=== PATIENT | male | born 1950 | race Caucasian/White ===

== ENCOUNTER 2024-09-27 12:05 | Observation (INO) | payer OTHER ==
[2024-09-26 11:03] LABS: Absolute Basophils 0.1 K/uL (0-0.5); Absolute Eosinophils 0.2 K/uL (0-0.5); Absolute Lymphocytes (CBC) 1.8 K/uL (0.7-4.9); Absolute Monocytes 0.8 K/uL (0.1-1.3); Absolute Neutrophil 4.9 K/uL (1.8-8.0); Basophils % 0.8 % (0-1.3); Eosinophils % 3.1 % (0-4.4); Hematocrit 44.4 % (39.6-49.0); Hemoglobin 14.8 g/dL (13.6-17.9); Lymphocytes % 22.7 % (15.3-44.8); MCH 28.7 pg (27.0-35.0); MCHC 33.4 g/dL (32.0-36.0); MCV 85.9 fL (80-100); MPV 8.8 fL (7.6-11.3); Monocytes % 10.3 % (3.3-12.3); Neutrophils % 63.1 % (41.7-73.7); Nucleated Red Blood Cells % 0.1 % (0-0); Platelets 213 thou/uL (152-406); RBC Red Blood Cell Count 5.17 M/uL (4.33-5.43); Red Cell Distribution Width 14.4 % (12.1-15.2)
[2024-09-26 11:07] LABS: Anion Gap 9.4 mEq/L (5.0-15.0); Potassium 4.4 mEq/L (3.5-5.1)
[2024-09-26 11:11] LABS: PT Prothrombin Time 11.2 SECONDS (9.4-12.5); PTT, Activated Partial Thromb 31.5 SECONDS (24.3-36.9)
--- NOTE | 2024-09-26 11:28 | RAD REPORT ---
Procedure: Chest Pa And Lat (2 Views) HISTORY: Preop. Hypertension COMPARISON: none FINDINGS: There is scarring are present within the right lung base. The lungs appear clear of acute infiltrate. No significant pleural effusion noted. The heart is normal size. Mild elevation right hemidiaphragm
[2024-09-27] MEDS ORDERED: NA CHLORIDE 0.9% 500 ML ONE (12:37)
[2024-09-27] MEDS ORDERED: HEPARIN 10,000 UNIT/10 ML VIAL IV ONE (13:58)
[2024-09-27] MEDS ORDERED: NITROGLYCERIN/D5W 50 MG/250 ML BTL IV ONE (13:58)
[2024-09-27] MEDS ORDERED: HEPA 1000U/500MLS 0 UNIT/0 ML BAG IV ONE (13:58)
[2024-09-27] MEDS ORDERED: VERAPAMIL HCL 10 MG/4 ML VIAL IV ONE (13:58)
[2024-09-27] MEDS ORDERED: LIDOCAINE 1% 20 ML MDV ONE (13:58)
[2024-09-27] MEDS ORDERED: ATROPINE SULF 1 MG/10 ML SYR IV ONE (13:59)
[2024-09-27] MEDS ORDERED: MIDAZOLAM HCL 2 MG/2 ML INJ ONE (13:59)
[2024-09-27] MEDS ORDERED: FENTANYL CITR 100 MCG/2 ML ONE (14:00)
[2024-09-27] MEDS ORDERED: HEPARIN 5000 UNIT/ML 1 ML VIAL ONE (14:00)
[2024-09-27] MEDS ORDERED: ASPIRIN 325 MG TAB ONE (16:33)
[2024-09-27] MEDS ORDERED: TICAGRELOR 90 MG TABLET PO ONE ×2 (16:33)
[2024-09-27] MEDS ORDERED: ASPIRIN 81 MG CHEWABLE TABLET ONE (16:34)
[2024-09-27] MEDS ORDERED: MORPHINE 2 MG/ML SYR IV PRN (17:21)
[2024-09-27] MEDS ORDERED: ONDANSETRON 4 MG/2 ML VIAL IV PRN (17:21)
[2024-09-27] MEDS ORDERED: ACETAMINOPHEN 500 MG TAB PO PRN (17:21)
--- NOTE | 2024-09-27 17:26 | P.HP ---
Patient History Allergies morphine Allergy (Verified 09/26/24 10:22) hallucinate Physical Examination - Vital Signs Blood Pressure: 140/65 Pulse: 70 Respirations: 16 Assessment & Plan - Advance Directives Does patient have a Living Will: Yes Does patient have a Durable POA for Healthcare: Yes
--- OUTSIDE RECORDS SUMMARY | 2024-09-27 17:32 | XMS REPORT | Continuity of Care Document ---
Author Name Unknown Address [address] [facility] [address] Fernando[address] [place] [address] [facility] thconnect Address [address] [facility] [address] [place] [address] Care Team Providers Care Bridge Saw Operator Name Role Phone Kenny ROBERSON, Isabela Romano Primary Care Physician Darío Montgomery MD Attending Clinician [phone] DARÍO MONTGOMERY Attending Clinician Unavail able Payers Payer Name Policy Type Policy Number Effective Date Expirati on Date Source MEDICARE PART A AND B Medicare [id number] 2024 00:00:00 [employer] SENIOR SUPPLEMENT Supp [id number] 2020 00:00:00 Problems Condition Name Condition Details Condition Category Status Onset Date Resolution Date Last Treatment Date Treating Clinician Comments Source Jailene Dent a Disease Active 04-01 00:00: 00 Taras Ghosh Hemiplegia , unspecifie d affecting left nondominan t side (CMS/HCC) Hemiplegia , unspecifie d affecting left nondominan t side (CMS/HCC) Disease Active 02-15 00:00: 00 Taras Ghosh History of colonic polyps History of colonic polyps Disease Active 02-15 00:00: 00 Taras Ghosh History of rhabdomyol ysis due to statin History of rhabdomyol ysis due to statin Disease Active 4-16 00:00: 00 Taras Dorado [facility] Memory loss Memory loss Disease Active 4-16 00:00: 00 Taras Dorado Epic Heart valve disorder Heart valve disorder Disease Active 1-02 00:00: 00 Taras Dorado Epic History of repair of inguinal hernia History of repair of inguinal hernia Disease Active 2022-11 0 00:00: 00 Taras Dorado Epic Slipping, tripping and stumbling without falling, unspecifie d, sequela Slipping, tripping and stumbling without falling, unspecifie d, sequela Disease Active 2022-11 0 00:00: 00 Taras Hdezann Epic Strain of other specified muscles, fascia and tendons at thigh level, right thigh, sequela Strain of other specified muscles, fascia and tendons at thigh level, right thigh, sequela Disease Active 2022-11 00:00: 00 Taras Dorado Epic Mixed anxiety and depressive disorder Mixed anxiety and depressive disorder Disease Active 2022-11 0- 00:00: 00 Taras Dorado Epic Stress and adjustment reaction Stress and adjustment reaction Disease Active 2022-11 0- 00:00: 00 Taras Dorado Epic Skin lesion Skin lesion Disease Active 9 00:00: 00 Taras Dorado Epic Anxiety Anxiety Disease Active 05-15 00:00: 00 Taras Dorado Epic Murmur Murmur Disease Active 05-15 00:00: 00 Taras Dorado Epic Polyarthri tis Polyarthri tis Disease Active 05-15 00:00: 00 Taras Dorado Epic Gastroesop hageal reflux disease Gastroesop hageal reflux disease Disease Active 03-10 00:00: 00 Taras Dorado Epic Hyperlipid emia Hyperlipid emia Disease Active 03-10 00:00: 00 Taras Dorado Epic Polyneurop athy Polyneurop athy Disease Active 03-10 00:00: 00 Taras Dorado Epic Calculus of kidney and ureter Calculus of kidney and ureter Disease Resolve d 2- 00:00: 00 2024-04-01 00:00:00 2024-04-01 14:49:57 [facility] [place] [facility] Calculus of gallbladde r without cholecysti tis without obstructio n Calculus of gallbladde r without cholecysti tis without obstructio n Disease Resolve d 0 2-02 00:00: 00 2024-04-01 00:00:00 2024-04-01 14:49:57 [facility] [place] [facility] Diverticul osis of colon Diverticul osis of colon Disease Resolve d 0 2-02 00:00: 00 2024-04-01 00:00:00 2024-04-01 14:49:57 [facility] [place] [facility] Vitamin B12 deficiency Vitamin B12 deficiency Disease Resolve d 2- 00:00: 00 2024-04-01 00:00:00 2024-04-01 14:49:57 [facility] Vitamin D deficiency Vitamin D deficiency Disease Resolve d 2-02 00:00: 00 2024-04-01 00:00:00 2024-04-01 14:49:57 [facility] Anemia Anemia Disease Resolve d 1-23 00:00: 00 2024-04-01 00:00:00 2024-04-01 14:49:57 [facility] [place] [facility] Fatigue Fatigue Disease Resolve d 1-19 00:00: 00 2024-04-01 00:00:00 2024-04-01 14:49:57 [facility] Right lower quadrant pain Right lower quadrant pain Disease Resolve d 0 1-19 00:00: 00 2024-04-01 00:00:00 2024-04-01 14:49:57 [facility] [place] [facility] Allergic rhinitis due to pollen Allergic rhinitis due to pollen Disease Resolve d 0 - 00:00: 00 2024-04-01 00:00:00 2024-04-01 14:49:57 [facility] [place] Dizziness Dizziness Disease Resolve d 9- 00:00: 00 2024-04-01 00:00:00 2024-04-01 14:49:57 [facility] [place] [facility] Fracture of pelvis (CMS/HCC) Fracture of pelvis (CMS/HCC) Disease Resolve d 7-14 00:00: 00 2024-04-01 00:00:00 2024-04-01 14:49:57 Taras velez [facility] Allergies, Adverse Reactions, Alerts Allergy Name Allergy Type Status Severity Reaction(s) Onset Date Inactive Date Treating Clinician Comments Source Morphine Propensi ty to adverse reaction s Active 04-01 00:00: 00 Taras [facility] MORPHINE DRUG INGREDI Active 04-01 00:00: 00 MHEOUT NO KNOWN ALLERGIE S SYSTEMIC Active Taras [facility] Social History Social Habit Start Date Stop Date Quantity Comments Source History of tobacco use Passive smoker [facility] Gender identity Benedicto maximusrosie [facility] Sexual orientation [facility] Alcoholic beverage intake 2024-05-24 00:00:00 2024-05-24 00:00:00 Ex-drinker (finding) [facility] History of Social function 2024-05-24 00:00:00 2024-05-24 00:00:00 [facility] Tobacco use and exposure 2024-04-01 00:00:00 2024-04-01 00:00:00 Smokeless tobacco non-user [facility] Smoking Status Start Date Stop Date Source Occasional tobacco smoker 2024-04-01 00:00:00 [facility] Medications Ordered Medication Name Filled Medication Name Start Date Stop Date Current Medication? Ordering Clinician Indication Dosage Frequency Signature (SIG) Comments Components Source ergocalcife rol (Vitamin D2) 1.25 MG (05446 UT) capsule ergocalcife rol (Vitamin D2) 1.25 MG (70467 UT) capsule 05-24 16:04: 48 05-24 00:00 :00 No 1{capsu le} Take 1 capsule by mouth 1 time each week. Taras Dorado [facility] fluticasone (Flonase) 50 MCG/ACT nasal spray fluticasone (Flonase) 50 MCG/ACT nasal spray 05-24 16:04: 45 Yes 1{spray } QD Administer 1 spray into each nostril 1 time each day. Taars Dorado [facility] omeprazole (PriLOSEC) [address] capsule omeprazole (PriLOSEC) [address] capsule 03-23 00:00: 00 Yes 40mg Take 40 mg by mouth in the morning. Take before meals. Taras Dorado [facility] simvastatin (Zocor) 40 MG tablet simvastatin (Zocor) 40 MG tablet 02-22 00:00: 00 05-24 00:00 :00 No 40mg Take 40 mg by mouth at bedtime. Taras Dorado [facility] escitalopra m (Lexapro) 20 MG tablet escitalopra m (Lexapro) 20 MG tablet 11-03 00:00: 00 Yes 20mg QD Take 20 mg by mouth 1 time each day. Taras Dorado [facility] losartan (Cozaar) 50 MG tablet losartan (Cozaar) 50 MG tablet 11-03 00:00: 00 Yes 50mg QD Take 50 mg by mouth 1 time each day. Taras Dorado [facility] atorvastati n (Lipitor) 40 MG tablet atorvastati n (Lipitor) 40 MG tablet 11-03 00:00: 00 Yes 40mg QD Take 40 mg by mouth 1 time each day. Taras Dorado [facility] famotidine (Pepcid) 20 MG tablet famotidine (Pepcid) 20 MG tablet 2022-11 00:00: 00 Yes 20mg Q.5D Take 20 mg by mouth in the morning and 20 mg in the evening. Taras Dorado [facility] Vital Signs Vital Name Observation Time Observation Value Comments S dilipcitlaly Systolic blood pressure 2024-05-24 16:07:00 134 mm[Hg] [facility] Diastolic blood pressure 2024-05-24 16:07:00 58 mm[Hg] [facility] Heart rate 2024-05-24 16:07:00 68 /[facility] Body temperature 2024-05-24 16:07:00 36.39 Di [facility] Respiratory rate 2024-05-24 16:07:00 16 /min [facility] Body height 2024-05-24 16:07:00 174 cm [facility] Body weight 2024-05-24 16:07:00 91.173 kg [facility] BMI 2024-05-24 16:07:00 30.12 kg/m2 Benedicto Hdezann Epic Oxygen saturation in Arterial blood by Pulse oximetry 2024-05-24 16:07:00 95 /min Adolfo muniz Epic Systolic blood pressure 2024-05-24 16:07:00 134 mm[Hg] Adolfo muniz Epic Diastolic blood pressure 2024-05-24 16:07:00 58 mm[Hg] Adolfo muniz Epic Heart rate 2024-05-24 16:07:00 68 /min [facility] [place] [facility] Body temperature 2024-05-24 16:07:00 36.39 Di [facility] Epic Respiratory rate 2024-05-24 16:07:00 16 /min Adolfo Ghosh Body height 2024-05-24 16:07:00 174 cm Benedicto maxi [facility] Body weight 2024-05-24 16:07:00 91.173 kg Benedicto maxi [facility]dez[facility] BMI 2024-05-24 16:07:00 30.12 kg/m2 Benedicto rial [facility] Epic Oxygen saturation in Arterial blood by Pulse oximetry 2024-05-24 16:07:00 95 /min Adolfo muniz Epic Systolic blood pressure 2024-04-01 14:56:00 134 mm[Hg] Adolfo muniz Epic - Parent Diastolic blood pressure 2024-04-01 14:56:00 55 mm[Hg] Adolfo muniz [facility] - Parent Heart rate 2024-04-01 14:56:00 63 /min [facility] [place] [facility] - Parent Body temperature 2024-04-01 14:56:00 36.78 Di [facility] Respiratory rate 2024-04-01 14:56:00 16 /min Adolfo Dorado [facility] - Parent Body height 2024-04-01 14:56:00 172.7 cm Benedicto maxi [facility]dez[facility] - Parent Body weight 2024-04-01 14:56:00 91.627 kg Benedicto maxi Hdez[facility] - Parent BMI 2024-04-01 14:56:00 30.71 kg/m2 Benedicto rial Estrada [facility] - Parent Oxygen saturation in Arterial blood by Pulse oximetry 2024-04-01 14:56:00 96 /min Adolfo muniz Epic - Parent Procedures Procedure Date / Time Performed Performing Clinician Source Copper Level 2024-04-01 00:00:00 [facility] Sedimentation Rate 2024-04-01 00:00:00 Me morial [facility] Vitamin B1 Level 2024-04-01 00:00:00 Benedicto german [facility] MRI brain wo IV contrast 2024-04-01 00:00:00 [facility] Encounters Start Date/Time End Date/Time Encounter Type Admission Type Attending [facility] Facility Care Department Encounter ID Source 2024-05-24 15:30:00 2024-05-24 16:39:53 Office Visit Darío Montgomery [id number] Taras Dorado [facility] 2024-05-24 15:27:05 2024-05-24 16:39:53 Outpatient Elective [id number] EOUT 2024-04-01 14:00:00 2024-04-01 15:42:45 Consult Elective Darío Montgomery [id number] 1 Taras Gordon Notes Date/Time Note Provider Source 2024-05-24 17:51:24 [facility]2024-07-23 17:51:24* Darío Montgomery MD - 05/24/2024 3:30 PM CDT HPI Patient returns for reevaluation. Labs unremarkable, brain MRI unremarkable for age. Memory problem mild. Primarily reassured patient given the normal workup. Allergies as of 05/24/2024 - Reviewed 04/01/2024 Allergen Reaction Noted Morphine 04/01/2024 has a current medication list which includes the following prescription(s): atorvastatin, escitalopram, famotidine, fluticasone, losartan, and omeprazole. Answers submitted by the patient for this visit: Review of Systems (Submitted on 05/19/2024) Trouble walking : Yes Dizziness: Yes Lightheadedness: Yes Vitals:05/24/24 1607 BP: 134/58 Pulse: 68 Resp: 16 Temp: 36.4 ?C (97.5 ?F) SpO2: 95% Neurological Exam Mental Status Awake and alert. Speech is normal. Cranial NervesCN II: Visual acuity is normal. CN III, IV, : Extraocular movements intact bilaterally. Pupils equal round and reactive to light bilaterally. CN VII: Full and symmetric facial movement. CN XII: Tongue midline without atrophy or fasciculations. MotorStrength is 5/5 throughout all four extremities. SensoryLight touch is normal in upper and lower extremities. Temperature is normal in upper and lower extremities. Vibration is normal in upper and lower extremities. ReflexesDeep tendon reflexes: Symmetric. GaitCasual gait is normal including stance, stride, and arm swing. Assessment & Plan Memory loss Reassurance, serial exams. [id number] 17:51:24Upcoming Encounters Health Maintenance Due Date Last Done Comments CT Colonography 1948 Colonoscopy 1948 Colorectal Cancer Screening 1948 FIT-DNA 1948 FIT 1948 FOBT 1948 Medicare Annual Wellness (AWV) 1948 Sigmoidoscopy 1948 Pneumococcal Vaccine: 65+ Ye ars (1 of 2 - PCV) 1954 DTaP/Tdap/Td Vaccines (1 - Tdap) 1967 Zoster Vaccines (1 of 2) 1998 Respiratory Syncytial Virus (RSV) or >=60 (1 - 1-dose 60+ series) 2008 Influenza Vaccine (#1) 2024 Lipid Panel 02/21/2029 02/22/2024 HIB Vaccines Aged Out No longer eligi ble based on patient's age to complete this topic HPV Vaccines Aged Out No longer eligi ble based on patient's age to complete this topic Hepatitis A Vaccines Aged Out No long er eligible based on patient's age to complete this topic Hepatitis B Vaccines Aged Out No long er eligible based on patient's age to complete this topic IPV Vaccines Aged Out No longer eligi ble based on patient's age to complete this topic Meningococcal Vaccine Aged Out No travon igor eligible based on patient's age to complete this topic Rotavirus Vaccines Aged Out No longer eligible based on patient's age to complete this topic [id number] 17:51:24 Diagnosis Memory loss - Primary [id number] 17:51:24 [id number] 18:32:13* Imaging (Routine) - Incomplete Specialty Diagnoses / Procedures Referred By Contac t Referred To Contact Radiology Diagnoses Memory loss Paresthesia Procedures MRI brain wo IV contrast Darío Montgomery MD [address] [place] [address] Referral ID Status Reason Start Date Expiration Date V isits Requested Visits Authorized [id number] Incomplete 04/01/2024 09/28/2024 1 1 [id number] 18:32:13* [id number] 18:32:13 [id number] 18:32:13* Darío Montgomery MD - 04/01/2024 2:00 PM CDT History Of Present Illness Solitario Ham is a 73 y.o. male presenting with memory problems, ongoing about 2 years. Primarily word finding problems. He does not really think it is getting worse his is not quite so sure. Still independent with activities of daily living. No behavioral difficulties. Has not really had any brain imaging had standard labs has a history of low B12 but review from primary care suggest that B12 level is back in the normal range at this juncture. Here for further evaluation. Past Medical History He has a past medical history of Allergic rhinitis due to pollen (07/13/2023), Anemia (11/24/2023), Diverticulosis of colon (12/04/2023), Dizziness (07/13/2023), Fatigue (11/20/2023), and Right lower quadrant pain (11/20/2023). Surgical History He has a past surgical history that includes Ankle surgery; Carpal tunnel release; Shoulder surgery; and Bony pelvis surgery. Family History Family History Problem Relation Name Age of Onset Arthritis Mother Cancer Mother Cancer Father No Known Problems Sister No Known Problems Brother No Known Problems Mother's Sister No Known Problems Mother's Brother No Known Problems Father's Sister No Known Problems Father's Brother No Known Problems Maternal Grandmother No Known Problems Maternal Grandfather No Known Problems Paternal Grandmother No Known Problems Paternal Grandfather No Known Problems Other Social History He reports that he has been smoking cigarettes and cigars. He has been exposed to tobacco smoke. He has never used smokeless tobacco. He reports that he does not drink alcohol and does not use drugs. AllergiesMorphine MedicationsCurrent Outpatient Medications Medication Sig Dispense Refill atorvastatin (Lipitor) 40 MG tablet Take 40 mg by mouth 1 time each day. ergocalciferol (Vitamin D2) 1.25 MG (99802 UT) capsule Take 1 capsule by mouth 1 time each week. escitalopram (Lexapro) 20 MG tablet Take 20 mg by mouth 1 time each day. famotidine (Pepcid) 20 MG tablet Take 20 mg by mouth in the morning and 20 mg in the evening. fluticasone (Flonase) 50 MCG/ACT nasal spray Administer 1 spray into each nostril 1 time each day. losartan (Cozaar) 50 MG tablet Take 50 mg by mouth 1 time each day. omeprazole (PriLOSEC) [address] capsule Take 40 mg by mouth in the morning. Take before meals. simvastatin (Zocor) 40 MG tablet Take 40 mg by mouth at bedtime. No current facility-administered medications for this visit. Review of Systems Genitourinary: Positive for frequency. Musculoskeletal: Positive for arthralgias, back pain, gait problem, myalgias and neck stiffness. Psychiatric/Behavioral: Positive for confusion and decreased concentration. Processing thoughts Last Recorded Vitals Vitals: 04/01/24 1456 BP: 134/55 Pulse: 63 Resp: 16 Temp: 36.8 ?C (98.2 ?F) SpO2: 96% Physical ExamVitals reviewed. Constitutional: Appearance: Normal appearance. HENT: Head: Normocephalic and atraumatic. Eyes: General: Lids are normal. Extraocular Movements: Extraocular movements intact. Pupils: Pupils are equal, round, and reactive to light. Cardiovascular: Rate and Rhythm: Normal rate and regular rhythm. Pulmonary: Effort: Pulmonary effort is normal. Breath sounds: Normal breath sounds. Abdominal: General: Bowel sounds are normal. Musculoskeletal: General: Normal range of motion. Cervical back: Normal range of motion and neck supple. Neurological: Motor: Motor strength is normal. Coordination: Coordination is intact. Deep Tendon Reflexes: Reflexes are normal and symmetric. Psychiatric: Mood and Affect: Mood normal. Speech: Speech normal. Behavior: Behavior normal. Neurological ExamMental Status Awake, alert and oriented to person, place and time. Recalls 3 of 3 objects immediately. At 3 minutes recalls 3 of 3 objects. Speech is normal. Able to name objects and name parts of objects. Follows two-step commands. Difficulty spelling words backwards. 5- World. MMSE score: 27. Cranial NervesCN II: Visual acuity is normal. Visual marley full to confrontation. CN III, IV, : Extraocular movements intact bilaterally. Normal lids and orbits bilaterally. Pupils equal round and reactive to light bilaterally. CN V: Facial sensation is normal. CN VII: Full and symmetric facial movement. CN VIII: Hearing is normal. CN IX, X: Palate elevates symmetrically. Normal gag reflex. CN XI: Shoulder shrug strength is normal. CN XII: Tongue midline without atrophy or fasciculations. MotorNormal muscle bulk throughout. Normal muscle tone. No abnormal involuntary movements. Strength is 5/5 throughout all four extremities. SensoryVibration abnormality: Decrease L knee. ReflexesDeep tendon reflexes are 2+ and symmetric in all four extremities. Coordination [id number], rapid alternating movements and [id number] normal bilaterally without dysmetria. GaitTandem gait abnormality: Unsteady . Assessment/PlanDiagnoses and all orders for this visit: Memory loss - Copper Level; Future - Sedimentation Rate; Future - Vitamin B1 Level; Future - MRI brain wo IV contrast; Future Paresthesia - Copper Level; Future - Sedimentation Rate; Future - Vitamin B1 Level; Future - MRI brain wo IV contrast; Future Check additional labs, brain imaging. [facility]2024 18:32:13Upcoming Encounters Scheduled Orders Name Type Priority Associated Diagnoses Orde r Schedule Copper Level Lab Routine Memory loss Paresthesia Expected: 04/01/2024 (Approximate), Expires: 04/01/2025 Sedimentation Rate Lab Routine Memory loss Paresthesia Expected: 04/01/2024 (Approximate), Expires: 04/01/2025 Vitamin B1 Level Lab Routine Memory loss Paresthesia Expected: 04/01/2024 (Approximate), Expires: 04/01/2025 MRI brain wo IV contrast Imaging Routine Memory loss Paresthesia Expected: 04/01/2024, Expires: 04/01/2025 Health Maintenance Due Date Last Done Comments CT Colonography 1948 Colonoscopy 1948 Colorectal Cancer Screening 1948 FIT-DNA 1948 FIT 1948 FOBT 1948 Sigmoidoscopy 1948 DTaP/Tdap/Td Vaccines (1 - Tdap) 1967 Zoster Vaccines (1 of 2) 1998 Respiratory Syncytial Virus (RSV) or >=60 (1 - 1-dose 60+ series) 2008 Pneumococcal Vaccine: 65+ Ye ars (1 of 1 - PCV) 2013 Lipid Panel 02/21/2029 02/22/2024 HIB Vaccines Aged Out No longer eligi ble based on patient's age to complete this topic HPV Vaccines Aged Out No longer eligi ble based on patient's age to complete this topic Hepatitis A Vaccines Aged Out No long er eligible based on patient's age to complete this topic Hepatitis B Vaccines Aged Out No long er eligible based on patient's age to complete this topic IPV Vaccines Aged Out No longer eligi ble based on patient's age to complete this topic Meningococcal Vaccine Aged Out No travon igor eligible based on patient's age to complete this topic Rotavirus Vaccines Aged Out No longer eligible based on patient's age to complete this topic [id number] 18:32:13 Diagnosis Memory loss - Primary Paresthesia Disturbance of skin sensation [id number] 18:32:13 [facility]
[2024-09-27 20:18] VITALS: O2SAT 96
[2024-09-27] MEDS: TICAGRELOR 90 MG TABLET PO SCH (20:43)
[2024-09-27] MEDS: ATORVASTATIN 40 MG TAB PO SCH (20:43)
[2024-09-27] MEDS: D5W 1,000 ML with NA BICARB 8.4% 50 MEQ IV SCH (20:52)
[2024-09-28 00:13] VITALS: BMI 29.5
--- NOTE | 2024-09-28 02:08 | OP ---
Date of Procedure: 09/27/2024 Surgeon: LEONARDO METZ Procedure Performed: 1.Selective coronary angiogram. 2.Left heart catheterization. 3.Right heart catheterization. 4.Percutaneous coronary intervention of severe ostial left circumflex, I used 3.5 x [address] ug-eluting stent. 5.Percutaneous coronary intervention of severe proximal OM1 branch severe stenosis, I used 3.5 x 60 mm Synergy drug-eluting stent. Indication: 1.Unstable angina. 2.Aortic valve stenosis. Access: 1.Right radial artery 6-Latvian, closed with TR band. 2.Right IJ 7-Latvian, closed with manual pressure. Complications: None. Bleeding: Less than 50 mL. Anesthesia: Total sedation time was 1 hour and 35 minutes, total about 95 minutes, used fentanyl and Versed. Description Of Procedure: After risks, benefits, and alternatives were explained, the patient agreed to procedure and signed informed consent. Patient was brought into cardiac catheterization laborato ry, prepped and draped in sterile fashion, then I accessed right radial artery using pediatric microp uncture kit, placed 6-Latvian slender sheath and then I accessed right IJ using micropuncture kit, ult rasound guidance, and placed a 7-Latvian PINNACLE sheath and then took a 7-Latvian balloon-tipped [place] catheter through the IJ access into the right atrium, right ventricle, pulmonary artery and wedge, ob tained waveform and pressures and then obtained thermodilution cardiac output and removed the [place] an d the sheath was removed. Manual pressure was placed for hemostasis with good closure with good hemo stasis. Then, I took 5-Latvian [place] 4 catheter into aortic root, engaged the RCA, took standard view s, and then the left main, took standard views, and then I exchanged for 6-Latvian Chromo catheter a cross the aortic valve and measured simultaneous pressure between the LV and the aorta and pullback d id not record any gradient and then gave systemic heparin to assure ACT level above 250 throughout e procedure, gave 180 Brilinta and 81 mg of aspirin and then took EBU 3.5 guide into the aortic root, engaged left main, took run-through wire into the left circumflex, placed it distally, and I used an NC balloon trying to open the OM stenosis, I could not, then I used a 3.0 x 10 mm Graham cutting balloon and I was able to open the stenosis very well. Lesion expanded very well and then I used a 3 .5 NC balloon and the lesion expanded very well and then also did angioplasty of the ostial circ usin g a 3.5 NC balloon and then I took a 3.5 x 60 mm Synergy drug-eluting stent to the OM branch and the stent expanded very well. No complications. Then, I took another 3.5 x 12 mm Synergy drug-eluting s tent and placed it in the proximal and ostium of the left circumflex. Excellent expansion and had to use a GuideLiner to deliver the stents in the Graham balloon successfully. Then, I removed the w teresita, took the angiogram, it was a satisfactory with no complications. EDGAR-3 flow was 0% residual st enosis and removed the guide and the sheath and placed TR band for closure and good hemostasis. Findings: 1.Left main, it is normal. 2.LAD, it is rather small with diffuse disease, diffuse 30% in the proximal mid segment and then bec omes luminal irregularities and very small artery. 3.Left circumflex, very large and dominant. It is the largest artery of the heart. Severe ostial l eft circ 90% stenosis, status post successful PCI as above. Then, the OM becomes very large and had 99% stenosis, which is the culprit of his symptoms status post successful PCI as above. Rest of the circ appears to be with no significant disease and it supplies the entire inferior wall. 4.RCA is occluded proximally 100%, it is MEDIA MARKETING SPECIALIST and it is nondominant. Right Heart Catheterization Numbers: RA pressure was 7, RV pressure was 30/1, mean of 10. PA pressu re was 32/9, mean of 20. Pulmonary wedge pressure was 10. LVEDP was 20 mmHg and the cardiac output average was 4.2 L/minute, mean gradient across aortic valve was 32 mmHg and the aortic valve area was 0.85 cm2. Conclusion: 1.Severe left circumflex and OM1 stenosis status post successful PCI as above. 2.Severe low-flow low-gradient aortic valve stenosis and we will plan for TAVR soon. 3.MEDIA MARKETING SPECIALIST of the RCA, but it is a nondominant and small. No further intervention will be done there. Plan: 1.We will start the workup for TAVR. 2.Brilinta, aspirin, high-dose statin, and admit overnight due to the high load of contrast used tod [place] as the procedure was very complex and difficult to use 75 cc of half NS overnight. Carefully afsaneh tor his kidney function and to put him on telemetry, and if no complications by the morning, he can b e released tomorrow morning. /JACOBO Voice ID: [id number] Report ID: [id number]
[2024-09-28 04:50] LABS: MCHC 33.3 g/dL (32.0-36.0)
[2024-09-28 04:57] LABS: Absolute Eosinophils 0.2 K/uL (0-0.5); Absolute Lymphocytes (CBC) 1.6 K/uL (0.7-4.9); Absolute Monocytes 1.1 K/uL (0.1-1.3); Basophils % 0.4 % (0-1.3); Hematocrit 42.6 % (39.6-49.0); Hemoglobin 14.2 g/dL (13.6-17.9); Lymphocytes % 13.1 % (15.3-44.8); MCV 87.1 fL (80-100); MPV 9.1 fL (7.6-11.3); Monocytes % 9.3 % (3.3-12.3); Neutrophils % 75.2 % (41.7-73.7); Platelets 187 thou/uL (152-406); Red Cell Distribution Width 14.4 % (12.1-15.2)
[2024-09-28 05:01] LABS: Albumin 3.2 g/dL (3.4-5.0); Albumin/Globulin Ratio 0.9 (1.1-1.8); Anion Gap 8.2 mEq/L (5.0-15.0); Bilirubin Total 1.2 mg/dL (0.2-1.0); Globulin 3.6 g/dL (2.3-3.5); Potassium 4.2 mEq/L (3.5-5.1); Protein, Total 6.8 g/dL (6.4-8.2)
[2024-09-28 05:02] LABS: Troponin High Sensitivity 128.6 pg/mL (<58.9)
[2024-09-28] MEDS: ASPIRIN EC 81 MG TAB PO SCH (09:12)
[2024-09-28 09:15] VITALS: BP 131/63; TEMP 97.1
--- NOTE | 2024-09-28 10:52 | P.DS ---
Admission Date: 09/27/24 Discharge Date: 09/28/24 Brief History of Present Illness: 74-year-old male past medical history of unstable angina, aortic valve stenosis, was admitted to ICU status post cardiac cath, is status post with 2 stent placement, Percutaneous coronary intervention of severe ostial left circumflex, 09/27/24 3.5 x 12 mm Synergy drug-eluting stent, severe proximal OM1 branch severe stenosis, I used 3.5 x 60 mm Synergy drug-eluting stent. Will need to follow-up outpatient f severe proximal OM1 branch severe stenosis, I used 3.5 x 60 mm Synergy drug-eluting stent. We will start the workup for TAVR. Plan to discharge home Brilinta, aspirin, high-dose statin, had noted normal saline in fusion for high dose contrast during angiogram. Monitor for creatinine prior to dischargem follow-up with cardiology outpatient - Physical Exam General: Alert oriented x 3, no acute distress no HEENT: Atraumatic, Normocephalic Respiratory: Clear to auscultation bilaterally, Normal air movement Cardiovascular: No edema, Normal pulses, Regular rate/rhythm, Normal S1 S2, Gastrointestinal: Soft, nontender Musculoskeletal moderate generalized weakness Integumentary: Warm and dry, no with Neurological: Normal speech Hospital Course: 74-year-old male past medical history of unstable angina, aortic valve stenosis, was admitted to ICU status post cardiac cath, is status post with 2 stent placement, Percutaneous coronary intervention of severe ostial left circumflex, 09/27/24 3.5 x 12 mm Synergy drug-eluting stent, severe proximal OM1 branch severe stenosis, 3.5 x 60 mm Synergy drug-eluting stent. Will need to follow-up outpatient on Thursday with Dr Mata. Plan to discharge home Brilinta, aspirin, high-dose statin, had noted normal saline infusion for high dose contrast during angiogram for cardiac cath. Tolerating diet, stable to discharge home. Discharge medication discharge home Brilinta, aspirin, high-dose statin, follow-up with cardiology on Thursday Assessment unstable angina, aortic valve stenosis, was admitted for angiogram, status post cardiac PCI x [address] Mata 09/27 Percutaneous coronary intervention of severe ostial left circumflex, 3.5 x 12 mm Synergy drug-eluting stent, severe proximal OM1 branch severe stenosis, I used 3.5 x 60 mm Synergy drug-eluting stent. Will need to follow-up outpatient with Card on Thursday Continue home medicines as previously prescribed GOAL: Clear understanding of disease process INSTRUCTIONS: Physician Discharge Instructions: -Follow-up with cardiology -Follow-up with PCP in 1 to 2 weeks -Please call Dr. Palafox at [phone] if any questions regarding hospital stay -Please call nursing station at [phone] if any nursing or medication questions -Return to the emergency room if symptoms worsen Diet: ADA, low sodium Activity: Fall precautions <Heidi Lomeli - Last Filed: 09/29/24 05:32> Admission Date: 09/27/24 Discharge Date: 09/28/24 - Problems (1) CAD (coronary artery disease) Status: Acute (2) CAD S/P percutaneous coronary angioplasty Status: Acute Hospital Course: Patient was seen and examined. Events of the last 24 hours have been noted. Spoke with with JOSUE regarding patient's clinical picture after evaluating and examining the patient independently. I performed a substantial part of the MDM during this patient's care today. I personally made or approved the documented management plan and acknowledge its risk of complications. I agree with the findings and documentation provided in the JOSUE's notes. Patient status post cardiac catheterization with stent placement x 2. Continue with antiplatelet therapy at this time. Anticipate discharge outpatient ca rdiology follow-up. <Evelyne Palafox - Last Filed: 10/15/24 19:17> Disposition: ROUTINE DISCHARGE Discharge Condition: GOOD Vital Signs/Physical Exam: Temp Pulse Resp BP Pulse Ox 97.1 F 77 16 131/63 93 09/28/24 08:00 09/28/24 08:00 09/28/24 08:00 09/28/24 08:00 09/28/24 08:00 Laboratory Data at Discharge: WBC 12.00 thou/uL (4.3-10.9) H 09/28/24 04:03 Hgb 14.2 g/dL (13.6-17.9) 09/28/24 04:03 Hct 42.6 % (39.6-49.0) 09/28/24 04:03 Plt Count 187 thou/uL (152-406) 09/28/24 04:03 PT 11.2 SECONDS (9.4-12.5) 09/26/24 10:42 INR 1.00 09/26/24 10:42 APTT 31.5 SECONDS (24.3-36.9) 09/26/24 10:42 Sodium 136 mEq/L (136-145) 09/28/24 04:03 Potassium 4.2 mEq/L (3.5-5.1) 09/28/24 04:03 BUN 22 mg/dL (7-18) H 09/28/24 04:03 Creatinine 1.12 mg/dL (0.70-1.30) 09/28/24 04:03 Glucose 136 mg/dL (74-106) H 09/28/24 04:03 Total Bilirubin 1.2 mg/dL (0.2-1.0) H 09/28/24 04:03 AST 21 U/L (15-37) 09/28/24 04:03 ALT 23 U/L (16-61) 09/28/24 04:03 Alkaline Phosphatase 68 U/L (45-117) 09/28/24 04:03 <Heidi Lomeli - Last Filed: 09/29/24 05:32> Vital Signs/Physical Exam: Temp Pulse Resp BP Pulse Ox 97.1 F 77 16 131/63 93 09/28/24 12:28 09/28/24 12:28 09/28/24 12:28 09/28/24 12:28 09/28/24 12:28 Laboratory Data at Discharge: WBC 12.00 thou/uL (4.3-10.9) H 09/28/24 04:03 Hgb 14.2 g/dL (13.6-17.9) 09/28/24 04:03 Hct 42.6 % (39.6-49.0) 09/28/24 04:03 Plt Count 187 thou/uL (152-406) 09/28/24 04:03 PT 11.2 SECONDS (9.4-12.5) 09/26/24 10:42 INR 1.00 09/26/24 10:42 APTT 31.5 SECONDS (24.3-36.9) 09/26/24 10:42 Sodium 136 mEq/L (136-145) 09/28/24 04:03 Potassium 4.2 mEq/L (3.5-5.1) 09/28/24 04:03 BUN 22 mg/dL (7-18) H 09/28/24 04:03 Creatinine 1.12 mg/dL (0.70-1.30) 09/28/24 04:03 Glucose 136 mg/dL (74-106) H 09/28/24 04:03 Total Bilirubin 1.2 mg/dL (0.2-1.0) H 09/28/24 04:03 AST 21 U/L (15-37) 09/28/24 04:03 ALT 23 U/L (16-61) 09/28/24 04:03 Alkaline Phosphatase 68 U/L (45-117) 09/28/24 04:03 <Evelyne Palafox - Last Filed: 10/15/24 19:17> Diet: AHA Time spent managing pt's care (in minutes): 45 <Heidi Lomeli - Last Filed: 09/29/24 05:32> <Evelyne Palafox - Last Filed: 10/15/24 19:17> Home Medications: Aspirin Chewable [Aspirin Chewable*] 81 mg PO DAILY 30 Days #30 tab.chew 09/28/24 Atorvastatin Calcium [Lipitor] 40 mg PO BEDTIME 09/28/24 Atorvastatin Calcium [Lipitor] 80 mg PO BEDTIME 30 Days #30 tab 09/28/24 Ergocalciferol (Vitamin D2) [Vitamin D2] 1,250 mcg PO Q7D 09/28/24 Escitalopram [Lexapro] 20 mg PO DAILY 09/28/24 Famotidine [Pepcid] 20 mg PO BID 09/28/24 Fluticasone [Flonase 50mcg Nasal [place]] 1 sprays ANKITA DAILY 09/28/24 Losartan Potassium [Cozaar] 100 mg PO DAILY 09/28/24 Omeprazole [Prilosec] 40 mg PO DAILY 09/28/24 Ticagrelor [Brilinta*] 90 mg PO BID 30 Days #60 tab 09/28/24 New Medications: Aspirin Chewable [Aspirin Chewable*] 81 mg PO DAILY 30 Days #30 tab.chew Ticagrelor [Brilinta*] 90 mg PO BID 30 Days #60 tab Atorvastatin Calcium [Lipitor] 80 mg PO BEDTIME 30 Days #30 tab Physician Discharge Instructions: 74-year-old male past medical history of unstable angina, aortic valve stenosis, was admitted to ICU status post cardiac cath, is status post with 2 stent placement, Percutaneous coronary intervention of severe ostial left circumflex, 09/27/24 3.5 x 12 mm Synergy drug-eluting stent, severe proximal OM1 branch severe stenosis, I used 3.5 x 60 mm Synergy drug-eluting stent. Will need to follow-up outpatient f severe proximal OM1 branch severe stenosis, I used 3.5 x 60 mm Synergy drug-eluting stent. We will start the workup for TAVR. Plan to discharge home Brilinta, aspirin, high-dose statin, had noted normal saline infusion for high dose contrast during angiogram. Discharge medication discharge home Brilinta, aspirin, high-dose statin, follow-up with cardiology after discharge Assessment unstable angina, aortic valve stenosis, was admitted for angiogram, status post cardiac PCI x [address] Mata 09/27 Percutaneous coronary intervention of severe ostial left circumflex, 3.5 x 12 mm Synergy drug-eluting stent, severe proximal OM1 branch severe stenosis, I used 3.5 x 60 mm Synergy drug-eluting stent. Will need to follow-up outpatient f severe proximal OM1 branch severe stenosis, I used 3.5 x 60 mm Synergy drug-eluting stent. We will start the workup for TAVR. Continue home medicines as previously prescribed GOAL: Clear understanding of disease process INSTRUCTIONS: Physician Discharge Instructions: -Follow-up with cardiology -Follow-up with PCP in 1 to 2 weeks -Please call Dr. Palafox at [phone] if any questions regarding hospital stay -Please call nursing station at [phone] if any nursing or medication questions -Return to the emergency room if symptoms worsen Diet: ADA, low sodium Activity: Fall precautions Followup: Paul Mata MD [ACTIVE - CAN ADMIT] - 1-2 Weeks Isabela Cox NP [Primary Care Provider] - 1-2 Weeks
--- NOTE | 2024-09-28 11:28 | P.CNS ---
Date of Consult: 09/28/24 Chief Complaint: CAD History of Present Illness: patient is s/p complex PCI of LCX/OM, feeling good today, denies chest pain, no SOB, no syncope. Allergies morphine Allergy (Verified 09/26/24 10:22) hallucinate Home medications list reviewed: Yes Home Medications: Aspirin Chewable [Aspirin Chewable*] 81 mg PO DAILY 30 Days #30 tab.chew 09/28/24 Atorvastatin Calcium [Lipitor] 40 mg PO BEDTIME 09/28/24 Atorvastatin Calcium [Lipitor] 80 mg PO BEDTIME 30 Days #30 tab 09/28/24 Ergocalciferol (Vitamin D2) [Vitamin D2] 1,250 mcg PO Q7D 09/28/24 Escitalopram [Lexapro] 20 mg PO DAILY 09/28/24 Famotidine [Pepcid] 20 mg PO BID 09/28/24 Fluticasone [Flonase 50mcg Nasal [place]] 1 sprays ANKITA DAILY 09/28/24 Losartan Potassium [Cozaar] 100 mg PO DAILY 09/28/24 Omeprazole [Prilosec] 40 mg PO DAILY 09/28/24 Ticagrelor [Brilinta*] 90 mg PO BID 30 Days #60 tab 09/28/24 - Past Medical/Surgical History Diabetic: No -: Hypertension -: HLD -: Multiple surgeries 2012 R/T Horse back riding injury- -: Left Hip Sx, Repair of Shattered pelvis, Repair of bladder - Social History Alcohol use: No CD- Drugs: No Caffeine use: Yes Place of Residence: Home Review of Systems 10-point ROS is otherwise unremarkable Physical Examination Temp Pulse Resp BP Pulse Ox 97.1 F 77 16 131/63 93 09/28/24 08:00 09/28/24 08:00 09/28/24 08:00 09/28/24 08:00 09/28/24 08:00 General: Alert, In no apparent distress HEENT: Atraumatic, PERRLA, Mucous membr. moist/pink, EOMI, Sclerae nonicteric Neck: Supple, 2+ carotid pulse no bruit, No LAD, Without JVD or thyroid abnormality Respiratory: Clear to auscultation bilaterally, Normal air movement Cardiovascular: Regular rate/rhythm, Normal S1 S2 Gastrointestinal: Normal bowel sounds, No tenderness Musculoskeletal: No tenderness Integumentary: No rashes Neurological: Normal gait, Normal speech, Normal tone, Normal affect Lymphatics: No axilla or inguinal lymphadenopathy Laboratory Data (last 24 hrs) 09/28/24 09/28/24 04:03 04:03 WBC 12.00 H Hgb 14.2 Hct 42.6 Plt Count 187 Sodium 136 Potassium 4.2 BUN 22 H Creatinine 1.12 Glucose 136 H Total Bilirubin 1.2 H AST 21 ALT 23 Alkaline Phosphatase 68 - Problems (1) Aortic valve stenosis Current Visit: Yes Status: Acute Plan: outpatient follow up for further evaluation. (2) CAD S/P percutaneous coronary angioplasty Current Visit: Yes Status: Acute Plan: s/p PCI of LCX/OM, denies chest pain, access site looks good. ASA 81 mg daily Brilinta 90 mg po BID for 12 months Lipitor
--- NOTE | 2024-09-28 12:29 | P.HP ---
Certification for Inpatient Patient admitted to: Observation With expected LOS: <2 Midnights Patient will require the following post-hospital care: None Practitioner: I am a practitioner with admitting privileges, knowledge of patient current condition, hospital course, and medical plan of care. Services: Services provided to patient in accordance with Admission requirements found in Title 42 Section 412.3 of the Code of Federal Regulations Patient History Date of Service: 09/27/24 Reason for admission: CAD History of Present Illness: Patient is a 74-year-old gentleman who came to the hospital with chest pain. Patient had a cardiac catheterization. Patient had stent placed. Patient was placed on antiplatelet therapy. Patient was doing well postoperatively however, decision was made to observe overnight for possible nephropathy. Patient be admitted for observation. Allergies morphine Allergy (Verified 09/26/24 10:22) hallucinate Home Medications: Aspirin Chewable [Aspirin Chewable*] 81 mg PO DAILY 30 Days #30 tab.chew 09/28/24 Atorvastatin Calcium [Lipitor] 40 mg PO BEDTIME 09/28/24 Atorvastatin Calcium [Lipitor] 80 mg PO BEDTIME 30 Days #30 tab 09/28/24 Ergocalciferol (Vitamin D2) [Vitamin D2] 1,250 mcg PO Q7D 09/28/24 Escitalopram [Lexapro] 20 mg PO DAILY 09/28/24 Famotidine [Pepcid] 20 mg PO BID 09/28/24 Fluticasone [Flonase 50mcg Nasal [place]] 1 sprays ANKITA DAILY 09/28/24 Losartan Potassium [Cozaar] 100 mg PO DAILY 09/28/24 Omeprazole [Prilosec] 40 mg PO DAILY 09/28/24 Ticagrelor [Brilinta*] 90 mg PO BID 30 Days #60 tab 09/28/24 - Past Medical/Surgical History Has patient received pneumonia vaccine in the past: Yes Diabetic: No -: Hypertension -: HLD -: Multiple surgeries 2011 R/T Horse back riding injury- -: Left Hip Sx, Repair of Shattered pelvis, Repair of bladder - Family History Father Family History: Reviewed- Non-Contributory - Social History Smoking Status: Former smoker Alcohol use: No CD- Drugs: No Caffeine use: Yes Place of Residence: Home Review of Systems 10-point ROS is otherwise unremarkable Physical Examination - Vital Signs Temperature: 97.1 F Blood Pressure: 131/63 Pulse: 77 Respirations: 16 Pulse Ox (%): 93 - Physical Exam General: Alert, In no apparent distress, Oriented x3 HEENT: Atraumatic, PERRLA, Mucous membr. moist/pink, EOMI, Sclerae nonicteric Neck: Supple, 2+ carotid pulse no bruit, No LAD, Without JVD or thyroid abnormality Respiratory: Clear to auscultation bilaterally, Normal air movement Cardiovascular: Regular rate/rhythm, Normal S1 S2 Gastrointestinal: Normal bowel sounds, Soft and benign, Non-distended, No tenderness Musculoskeletal: No clubbing, No swelling, No tenderness Integumentary: No rashes Neurological: Normal gait, Normal speech, Normal strength at 5/5 x4 extr, Normal tone, Sensation intact, Cranial nerves 3-12 intact, Normal affect Lymphatics: No axilla or inguinal lymphadenopathy - Studies Laboratory Data (last 24 hrs) 09/28/24 09/28/24 04:03 04:03 WBC 12.00 H Hgb 14.2 Hct 42.6 Plt Count 187 Sodium 136 Potassium 4.2 BUN 22 H Creatinine 1.12 Glucose 136 H Total Bilirubin 1.2 H AST 21 ALT 23 Alkaline Phosphatase 68 Assessment & Plan - Problems (Diagnosis) (1) CAD (coronary artery disease) Current Visit: Yes Status: Acute (2) CAD S/P percutaneous coronary angioplasty Current Visit: Yes Status: Acute - Plan -High-sensitivity troponin -Cardiology consultation -Monitor renal function. Anticipate discharge in a.m. Discharge Plan: Home Plan to discharge in: 24 Hours - Advance Directives Does patient have a Living Will: No Does patient have a Durable POA for Healthcare: Yes - Code Status/Comfort Care Code Status Assessed: Yes Code Status: Full Code Critical Care: No Time Spent Managing PTS Care (In Minutes): 45
== END 2024-09-28 12:28 | disposition home or self-care (01) ==
LOC: CCL 12:05 → 2ND 17:21
PROVIDERS: ADMIT Hospitalist; ATTEND Hospitalist
PROC: 027135Z Dilation of Coronary Artery, Two Arteries with Two Drug-eluting Intraluminal Devices, Percutaneous Approach (ICD-10-PCS; principal; 2024-09-27)
PROC: 4A023N8 Measurement of Cardiac Sampling and Pressure, Bilateral, Percutaneous Approach (ICD-10-PCS; 2024-09-27)
PROC: B2111ZZ Fluoroscopy of Multiple Coronary Arteries using Low Osmolar Contrast (ICD-10-PCS; 2024-09-27)
DX: I25.110 Atherosclerotic heart disease of native coronary artery with unstable angina pectoris (principal); I25.82 Chronic total occlusion of coronary artery; I35.0 Nonrheumatic aortic (valve) stenosis; I65.23 Occlusion and stenosis of bilateral carotid arteries; I10 Essential (primary) hypertension; E78.2 Mixed hyperlipidemia; Z87.891 Personal history of nicotine dependence; Z79.82 Long term (current) use of aspirin; Z79.899 Other long term (current) drug therapy; Z88.5 Allergy status to narcotic agent
CPT/HCPCS: 85025 ×2; 80048; 36415 ×2; 85610; 85730; 84484; 80053; 71046; 93460; 76937; C1893; Q9967; C1725 ×2; C9601; C9600; J1644; J2003; J2250; J3010; G0378 ×3; J7040; G0379; 99152; 99153; J0461